=== PATIENT | female | born 1945 | race Caucasian/White ===

== ENCOUNTER → 2016-07-24 | Outpatient (CLI) | payer MEDICARE ==
--- NOTE | 2016-07-24 11:12 | XR ---
EXAMINATION TYPE: XR chest 2V DATE OF EXAM: 07/24/2016 11:05 AM COMPARISON: NONE HISTORY: Shortness of breath TECHNIQUE: Frontal and lateral views of the chest are obtained. FINDINGS: Scattered senescent parenchymal changes noted. Hyperinflation compatible with COPD. No evidence for infiltrate. No evidence for atelectasis. Heart size is stable. Mediastinal structures are stable and grossly unremarkable. No evidence for hilar prominence. Degenerative changes dorsal spine. IMPRESSION: 1. No evidence for acute pulmonary disease.
[2016-07-24 11:59] LABS: Basophils # (A) 0.1 k/uL (0-0.2); Basophils % (A) 1 %; Eosinophils # (A) 0.2 k/uL (0-0.7); Eosinophils % (A) 2 %; HCT 39.9 % (34.0-46.0); HDW 2.97; HGB 13.6 gm/dL (11.4-16.0); Luc # (Auto) 0.17; Luc % (Auto) 2; Lymphocytes # (A) 1.5 k/uL (1.0-4.8); Lymphocytes % (A) 18 %; MCH 30.4 pg (25.0-35.0); MCHC 34.2 g/dL (31.0-37.0); MCV 89.1 fL (80.0-100.0); Mean Platelet Volume 6.1; Monocytes # (A) 0.3 k/uL (0-1.0); Monocytes % (A) 4 %; Neutrophils # (A) 5.9 k/uL (1.3-7.7); Neutrophils % (A) 72 %; RBC 4.48 m/uL (3.80-5.40); RDW 13.4 % (11.5-15.5); WBC 8.1 k/uL (3.8-10.6); WBC (Perox) 7.83
[2016-07-24 13:02] LABS: Hemoglobin A1C 5.6 % (4.2-6.1)
[2016-07-24 14:50] LABS: ALT 34 U/L (9-52); AST 26 U/L (14-36); Alkaline Phosphatase 98 U/L (38-126); Anion Gap 10 mmol/L; Blood Urea Nitrogen 23 mg/dL (7-17); Calcium 9.6 mg/dL (8.4-10.2); Carbon Dioxide 28 mmol/L (22-30); Chloride 103 mmol/L (98-107); Cholesterol 246 mg/dL (<200); Glucose 119 mg/dL (74-99); HDL Cholesterol 59 mg/dL (40-60); Non-African American GFR(MDRD) 55 (>60 ml/min/1.73 sqM); Potassium 3.8 mmol/L (3.5-5.1); Sodium 141 mmol/L (137-145); Total Bilirubin 0.7 mg/dL (0.2-1.3); Total Protein 7.6 g/dL (6.3-8.2); Triglycerides 239 mg/dL (<150)
== END | disposition home or self-care (01) ==
LOC: LABWHC1 10:09
PROVIDERS: ATTEND Family Medicine
DX: R07.89 Other chest pain (principal); I10 Essential (primary) hypertension; Z00.00 Encounter for general adult medical examination without abnormal findings
CPT/HCPCS: 36415; 71020; 80053; 80061; 82533; 83036; 84439; 84443; 84484; 85025

== ENCOUNTER → 2016-08-07 | Outpatient (CLI) | payer MEDICARE ==
--- NOTE | 2016-08-07 16:05 | CT ---
EXAMINATION TYPE: CT brain wo con DATE OF EXAM: 08/07/2016 3:48 PM HISTORY: Hypertension and right sided headache and neck pain. CT DLP: 1121.00 mGycm. Automated Exposure Control for Dose Reduction was Utilized. TECHNIQUE: CT scan of the head is performed without contrast. COMPARISON: None. FINDINGS: There is no acute intracranial hemorrhage or midline shift identified. There is diffuse v entricular and sulcal prominence consistent with diffuse age-related cerebral atrophy. There is low- attenuation in the periventricular white matter consistent with chronic small vessel ischemic change. There is suspected mucous retention cyst or polyp in the right ethmoid sinus on axial image 8 otherw ise paranasal sinuses are clear. The globes are intact bilaterally. IMPRESSION: No acute intracranial hemorrhage or midline shift. There is mild diffuse age-related ce rebral atrophy and chronic small vessel ischemic change noted.
--- NOTE | 2016-08-08 15:27 | US ---
EXAMINATION TYPE: US carotid duplex BILAT DATE OF EXAM: 08/07/2016 4:00 PM COMPARISON: NONE CLINICAL HISTORY: R55 Syncope, I10 Hypertenstion R07.9 Chest Pain. EXAM MEASUREMENTS: RIGHT: Peak Systolic Velocity (PSV) cm/sec ----- Right CCA: 68.3 ----- Right ICA: 88.7 ----- Right ECA: 63.2 ICA/CCA ratio: 1.3 RIGHT: End Diastole cm/sec ----- Right CCA: 20.6 ----- Right ICA: 36.9 ----- Right ECA: 5.5 LEFT: Peak Systolic Velocity (PSV) cm/sec ----- Left CCA: 56.6 ----- Left ICA: 59.8 ----- Left ECA: 45.9 ICA/CCA ratio: 1.1 LEFT: End Diastole cm/sec ----- Left CCA: 16.8 ----- Left ICA: 59.8 ----- Left ECA: 12.9 VERTEBRALS (direction of flow): Right Vertebral: Antegrade Left Vertebral: Antegrade No significant velocity elevations Heart atheromatous plaquing of posterior shadowing is within the right carotid bulb. Intimal thickeni ng is present on the left. Some atheromatous plaquing is present on the left. IMPRESSION: 1. Atheromatous plaquing and intimal thickening without significant flow-limiting stenosis. Criteria for Assigning % of Stenosis / Diameter reduction (Estimation based on the indirect measurements of the internal carotid artery velocities (ICA PSV). 1. Normal (no stenosis)=ICA PSV < 125 cm/s: ratio < 2.0: ICA EDV<40 cm/s. 2. Less than 50% stenosis=ICA PSV < 125 cm/s: ratio < 2.0: ICA EDV<40 cm/s. 3. 50 to 69% stenosis=ICA PSV of 125 to 230 cm/s: ration 2.0 ? 4.0: ICA EDV 40-100 cm/s. 4. Greater than 70% stenosis to near occlusion= ICA PSV > 230 cm/s: ratio > 4.0: ICA EDV > 100 cm/s. 5. Near occlusion= ICA PSV velocities may be low or undetectable: variable ratio and ICA EDV. 6. Total occlusion=unable to detect flow.
== END | disposition home or self-care (01) ==
LOC: RADCTMAIN 15:25
PROVIDERS: ATTEND Family Medicine
DX: I67.82 Cerebral ischemia (principal); G31.1 Senile degeneration of brain, not elsewhere classified; I65.23 Occlusion and stenosis of bilateral carotid arteries
CPT/HCPCS: 70450; 93880

== ENCOUNTER → 2016-09-16 | Outpatient (CLI) | payer MEDICARE ==
--- NOTE | 2016-09-16 16:08 | BD ---
EXAMINATION TYPE: MG DEXA axial skeleton. DATE OF EXAM: 09/16/2016 COMPARISON: NONE CLINICAL HISTORY: 71-year-old female osteopenia Height: 64 Weight: 189.1 FRAX RISK QUESTIONS: Alcohol (3 or more units per day): no Family History (Parent hip fracture): no Glucocorticoids (More than 3mos): no (Ex: prednisone, prednisolone, methylprednisolone, dexamethasone, and hydrocortisone). History of Fracture in Adulthood: no Secondary Osteoporosis: 1. Type 1 Diabetes: no 2. Hyperthyroidism: no 3. Menopause before 45: yes 4. Malnutrition: no 5. Chronic liver disease: no Rheumatoid Arthritis: no Current Tobacco Use: RISK FACTORS HISTORY OF: Hip Fracture (Right/Left): no Spine Fracture: no History of Wrist Fracture: no Surgery to Spine/Hip(right/left)/Wrist (right/left): no Family History of Osteoporosis: no Active: sometimes Diet low in dairy products/other sources of calcium: no Postmenopausal woman: around 46 Lost more than 2 inches in height since high school: no Frequent falls: no Poor Health: no Hyperparathyroidism: no Adrenal Insufficiency: no MEDICATIONS: lorasartan, carvedilil Thyroid Medications: levothyroxine How Lon years Additional History: EXAM MEASUREMENTS: Bone mineral densitometry was performed using the [employer] System. Bone mineral density as measured about the Lumbar spine is: ----- L1-L4(G/cm2): 1.966 T Score Values are as follows: ----- L2: 4.0 ----- L3: 7.7 ----- L4: 9.4 ----- L1-L4: 6.5 Bone mineral density has: increased 8.1 % since study of: 11.29.2003 Bone mineral density about the R hip (g/cm2): 1.168 Bone mineral density about the L hip (g/cm2): 1.197 T Score values are as follows: -----R Neck: 0.9 -----L Neck: 1.1 -----R Total: 2.0 -----L Total: 2.2 Bone mineral density has: increased 5.2 % since study of: 11.29.2003 IMPRESSION: Normal (Values between +1 and -1 indicate normal bone mass). Consider repeating this study in 5 year s or sooner if there is some new clinical indication. NOTE: T-SCORE=SD OF THE YOUNG ADULT MEAN.
== END | disposition home or self-care (01) ==
LOC: RADBDWWP 13:23
PROVIDERS: ATTEND Family Medicine
DX: M85.80 Other specified disorders of bone density and structure, unspecified site (principal)
CPT/HCPCS: 77080

== ENCOUNTER → 2021-08-28 | Outpatient (CLI) | payer MEDICARE ==
--- NOTE | 2021-08-28 13:04 | XR ---
EXAMINATION TYPE: XR lumbosacral spine min 4V DATE OF EXAM: 08/28/2021 CLINICAL HISTORY: pain COMPARISON: NONE TECHNIQUE: Frontal, lateral, and oblique images of the lumbar spine are obtained. FINDINGS: There is moderate curvature convex to the left. Severe multilevel degenerative disc space n arrowing with endplate sclerosis identified from L2-3 through L5-S1. Ventral and dorsal spondylosis. Severe facet joint arthropathy. Normal alignment. Lower lumbar facet joint arthropathy. No acute frac ture or dislocation seen. IMPRESSION: Advanced degenerative changes.
== END | disposition home or self-care (01) ==
LOC: RADXRMAIN 12:20
PROVIDERS: ATTEND Family Medicine
DX: M47.817 Spondylosis without myelopathy or radiculopathy, lumbosacral region (principal)
CPT/HCPCS: 72110

== ENCOUNTER → 2021-09-28 | Outpatient (CLI) | payer MEDICARE ==
--- NOTE | 2021-09-29 03:18 | MR ---
EXAMINATION TYPE: MR lumbar spine wo con DATE OF EXAM: 09/28/2021 COMPARISON: None HISTORY: Low back pain into left lower extremity Multiplanar multi echo imaging of the lumbar spine with no contrast. Slight levoscoliosis. There is degenerative disc space narrowing throughout the lumbar spine. No comp ression fracture. There is endplate spur formation and facet arthropathy with some lateral recess boris nosis at L2-3 and L3-4. No lumbar paraspinal mass. No focal bone destruction. There is a mild relativ e spinal stenosis at L3-4. Sacroiliac joints appear intact. IMPRESSION: Moderate multilevel spondylotic changes. Mild spinal stenosis at L3-4. No compression fracture. Mild neural foraminal narrowing at multiple levels due to disc space narrowing and facet arthropathy.
== END | disposition home or self-care (01) ==
LOC: RADMRIMAIN 15:04
PROVIDERS: ATTEND Family Medicine
DX: M51.36 Other intervertebral disc degeneration, lumbar region (principal); M99.53 Intervertebral disc stenosis of neural canal of lumbar region; M47.816 Spondylosis without myelopathy or radiculopathy, lumbar region
CPT/HCPCS: 72148

== ENCOUNTER → 2023-08-25 | Outpatient (CLI) | payer MEDICARE ==
--- NOTE | 2023-08-25 20:33 | BD ---
EXAMINATION TYPE: Axial Bone Density DATE OF EXAM: 08/25/2023 CLINICAL HISTORY: 78 years old Female. ICD-10 CODE: Z78.0 ASYMPTOMATIC MENOPAUSAL STATE Height: 64 Weight: 176.4 FRAX RISK QUESTIONS: Alcohol (3 or more units per day): no Family History (Parent hip fracture): no Glucocorticoids (More than 3mos): no (Ex: prednisone, prednisolone, methylprednisolone, dexamethasone, and hydrocortisone). History of Fracture in Adulthood: no Secondary Osteoporosis: 1. Type 1 Diabetes: no 2. Hyperthyroidism: no 3. Menopause before 45: no 4. Malnutrition: no 5. Chronic liver disease: no Rheumatoid Arthritis: no Current Tobacco Use: no RISK FACTORS HISTORY OF: Surgery to Spine/Hip(right/left)/Wrist (right/left): no MEDICATIONS: Thyroid Medications: levothyroxine How Lon years EXAM MEASUREMENTS: Bone mineral densitometry was performed using the [employer] System. Bone mineral density as measured about the Lumbar spine is: ----- L1-L4(G/cm2): 1.940 T Score Values are as follows: ----- L1: 4.3 ----- L2: 4.5 ----- L3: 7.8 ----- L4: 8.9 ----- L1-L4: 6.3 Z Score Values are as follows: ----- L1: 5.6 ----- L2: 5.8 ----- L3: 9.1 ----- L4: 10.2 ----- L1-L4: 7.6 Bone mineral density has: increased 0.7 % since study of: 09.16.2016 Bone mineral density about the R hip (g/cm2): 1.262 Bone mineral density about the L hip (g/cm2): 1.302 T Score values are as follows: -----R Neck: 1.2 -----L Neck: 1.3 -----R Total: 2.0 -----L Total: 2.3 Z Score values are as follows: -----R Neck: 2.9 -----L Neck: 3.0 -----R Total: 3.5 -----L Total: 3.8 Bone mineral density has: decreased -1.3 % since study of: 09.16.2016 FRAX%s: The graph provided illustrates a 5.8% chance for a major osteoporotic fx and a 0.3% chance fo r the hips probability for fx in 10 years time. IMPRESSION: Normal (Values between +1 and -1 indicate normal bone mass). Consider repeating this study in 5 year s or sooner if there is some new clinical indication. NOTE: T-SCORE=SD OF THE YOUNG ADULT MEAN.
== END | disposition home or self-care (01) ==
LOC: RADBDWWP 09:13
PROVIDERS: ATTEND Family Medicine
DX: Z78.0 Asymptomatic menopausal state (principal)
CPT/HCPCS: 77080

== ENCOUNTER → 2023-11-02 | Outpatient (CLI) | payer MEDICARE ==
--- NOTE | 2023-12-01 09:25 | MR ---
Site ID synapse default Patient Kathi Poole E ID [id number] 1945 Age/Gender: 78Y, F Order # N/A Procedure MR lumbar spine wo con Date 11/02/2023 1:57:57 PM EXAMINATION TYPE: MR lumbar spine wo con DATE OF EXAM: 11/13/2023 COMPARISON: MRI lumbar spine 09/28/2021 HISTORY: Low back pain into left side. TECHNIQUE: Multiplanar, multisequence images of the lumbar spine were acquired without IV contrast. FINDINGS: The lumbar vertebral bodies do have preserved heights. Levoscoliotic curvature of the lumb ar spine with apex at L3. Mild retrolisthesis of T12 and L1. Stable T1/T2 hypointense lesion within t he L1 vertebral body probably representing a bone island. Multilevel small Schmorl's nodes. Multileve l disc desiccation is present. Diffuse heterogenous bone marrow signal. Multilevel anterior osteophyt osis. Type I Modic changes involving the superior endplate of the L3 vertebral body and inferior end plate of the L2 vertebral body. The conus medullaris and the distal spinal cord do appear unremarkabl e with regards to their signal intensity and morphology. T12-L1: Mild retrolisthesis. No significant central canal stenosis. Bilateral facet arthropathy with mild bilateral neural foraminal stenosis. L1-L2: No disc herniation or significant central canal stenosis. Bilateral facet arthropathy with mi ld right neural foraminal stenosis. The left neural foramen is patent. L2-L3: Broad-based disc bulge with ligamentum flavum buckling and bilateral facet arthropathy contri bute to mild central canal stenosis. Moderate right neural foraminal stenosis. The left neural forame n is patent. L3-L4: Left paracentral caudal extrusion coursing 7 mm along the posterior cortex of the L4 vertebra l body. This results in moderate central canal stenosis. Bilateral facet arthropathy with ligamentum flavum buckling. Severe right and moderate left neural foraminal stenosis. L4-L5: Broad-based disc bulge without significant effacement of the anterior thecal sac. Bilateral fa cet arthropathy with left greater than right. No significant central canal stenosis. Mild right and m oderate left neural foraminal stenosis. L5-S1: The intervertebral disc appears round on its contour posteriorly without significant mass eff ect upon the thecal sac. Facet joints are enlarged. The left neural foraminal stenosis. The right ne ural foramen is patent Other significant findings: Partial visualization of sigmoid diverticulosis. IMPRESSION: 1. Moderate multilevel degenerative disc disease and facet arthropathy redemonstrated with developme nt of a left paracentral caudal disc extrusion at L3-L4 resulting in moderate central canal stenosis. Varying degrees of neural foraminal stenosis as described above. 2. Mild retrolisthesis of T12 on L1 with levoscoliotic curvature of the lumbar spine.
== END | disposition home or self-care (01) ==
LOC: RADMRIMAIN 14:37
PROVIDERS: ATTEND Orthopaedic Surgery
DX: M47.816 Spondylosis without myelopathy or radiculopathy, lumbar region (principal); M51.36 Other intervertebral disc degeneration, lumbar region; M51.16 Intervertebral disc disorders with radiculopathy, lumbar region; M41.9 Scoliosis, unspecified; M43.16 Spondylolisthesis, lumbar region; M99.73 Connective tissue and disc stenosis of intervertebral foramina of lumbar region
CPT/HCPCS: 72148

== ENCOUNTER → 2023-11-20 | Outpatient (CLI) | payer MEDICARE ==
[~2023-11-20] MED LIST: DOBUTamine DRIP for NUC MED 500 MG in DEXTROSE/WATER 1 250ML.BAG IV PRN; DOBUTamine DRIP for NUC MED 500 MG/250 ML BAG IV ONE
--- NOTE | 2023-11-20 12:59 | CA ---
Dobutamine Stress Echocardiogram Report Kathi Poole Age: 78 Gender: F : 1945 Exam Date: 11/20/2023 08:40 Exam Location: [facility] Ordering Physician: Bernard Roberts DO Referring Physician: Bernard Roberts DO Pipe [employer]: RO Technologist: Ht (in): 64 Wt (lb): 182 Procedure CPT: Indication: R07.9 CHEST PAIN, UNSPECIFIED ICD-9 Codes: Rhythm: Patient History: Shortness of breath, palpitations, hypertension and family history of heart disease. Cardiac Medications: Medications in past 24 hours: Contrast: Definity Total Dose (mL): 2 Stress Results Protocol: Dobutamine Peak Dose (???g/kg/min): 40 Duration (min:sec): Atropine:(mg) Target HR: 122 Double Product: 81008 Resting HR: 64 Resting BP: 152 / 85 Peak HR: 143 Peak BP: 198 / 64 Max Predicted HR: 143 100 % Max Predicted HR Stress Summary: BP Response: Reason for Termination: INFUSION COMPLETE,Target HR Cardiac Symptoms: NO SYMPTOMS ECG Analysis Resting EKG: Stress EKG: Arrhythmia: Echo Analysis Base Echo Analysis: Low Echo Anaylsis: Peak Echo Analysis: Recovery Echo: MEASUREMENTS (Male/Female) Normal Values CONCLUSIONS Patient underwent dobutamine stress echo with infusion of dobutamine into Stage 4 for a total of 13 minutes and 20 seconds. Patient's maximum heart rate was 143 which represented 100% age-predicted maximum heart rate. Stress EKG portion: At baseline patient's EKG showed normal sinus rhythm, normal axis, no significant ST or T wave abnormalities. At peak dobutamine infusion, EKG showed rare PVCs and no significant ST or T wave abnormalities. Stress echo portion: 2-D echocardiogram was performed in the parasternal long, personal short, apical 2 and apical four-chamber views at rest, low-dose, peak infusion and in recovery. At baseline, echocardiogram showed left ventricular ejection fraction 55% without wall motion abnormalities. With peak infusion, echocardiogram shows improvement in left ventricular ejection fraction, increase contractility, decrease in left ventricular end systolic dimension without wall motion abnormalities consistent with a normal response to dobutamine. Conclusions: 1. Normal stress EKG and echo response to dobutamine infusion without any evidence of inducible ischemia. Dr. Petey Feliz DO (Electronically Signed) Final Date: 20 November 2023 12:58
--- NOTE | 2023-11-20 13:46 | CA ---
Transthoracic Echo Report Name: Kathi Poole Age: 78 Gender: F : 1945 Exam Date: 11/20/2023 09:05 Exam Location: [facility] Ht (in): 64 Wt (lb): 182 Ordering Physician: Bernard Roberts DO Attending/Referring Phys: Bernard Roberts DO Forensic Anthropologist Erin Mustafa RDCS Procedure CPT: Indications: R07.9 CHEST PAIN Cardiac Hx: Technical Quality: Fair Contrast 1: Total Dose (mL): Contrast 2: Total Dose (mL): MEASUREMENTS (Male / Female) Normal Values 2D ECHO LV Diastolic Diameter PLAX 3.3 cm 4.2 - 5.9 / 3.9 - 5.3 cm LV Systolic Diameter PLAX 2.4 cm IVS Diastolic Thickness 1.0 cm 0.6 - 1.0 / 0.6 - 0.9 cm LVPW Diastolic Thickness 1.1 cm 0.6 - 1.0 / 0.6 - 0.9 cm LV Relative Wall Thickness 0.6 LV Diastolic Volume MOD BP 78.5 cm??? 67 - 155 / 56 - 104 cm??? LV Systolic Volume MOD BP 30.1 cm??? 22 - 58 / 19 - 49 cm??? LV Ejection Fraction MOD BP 61.7 % >= 55 % LV Cardiac Index MOD BP 1855.1 cm???/min???m??? LV Diastolic Volume MOD 4C 68.6 cm??? LV Systolic Volume MOD 4C 26.5 cm??? LV Ejection Fraction MOD 4C 61.3 % LV Cardiac Index MOD 4C 1610.6 cm???/min???m??? LV Diastolic Length 4C 7.2 cm LV Systolic Length 4C 5.6 cm LV Diastolic Volume MOD 2C 86.1 cm??? LV Systolic Volume MOD 2C 32.1 cm??? LV Ejection Fraction MOD 2C 62.7 % LV Cardiac Index MOD 2C 2066.1 cm???/min???m??? LV Diastolic Length 2C 7.6 cm LV Systolic Length 2C 6.0 cm DOPPLER AV Peak Velocity 114.2 cm/s AV Peak Gradient 5.2 mmHg AV Mean Velocity 78.7 cm/s AV Mean Gradient 2.8 mmHg AV Velocity Time Integral 25.1 cm Mitral E Point Velocity 47.0 cm/s Mitral A Point Velocity 69.3 cm/s Mitral E to A Ratio 0.7 MV Deceleration Time 178.0 ms MV E' Velocity 6.2 cm/s Mitral E to MV E' Ratio 7.6 TR Peak Velocity 230.8 cm/s TR Peak Gradient 21.3 mmHg Right Atrial Pressure 5.0 mmHg Pulmonary Artery Systolic Pressu 26.3 mmHg Right Ventricular Systolic Press 26.3 mmHg PV Peak Velocity 87.8 cm/s PV Peak Gradient 3.1 mmHg FINDINGS Left Ventricle Left ventricular ejection fraction is estimated at 55-60 %. Mildly increased posterior wall thickness. Left ventricular cavity size normal. No obvious regional wall motion abnormalities. Right Ventricle Normal right ventricular size and function. Right ventricular systolic pressure within normal limits. Right Atrium Normal right atrial size. Left Atrium Normal left atrial size. Mitral Valve Structurally normal mitral valve. No evidence for mitral valve prolapse. No mitral stenosis. Trace mitral regurgitation. Aortic Valve Trileaflet aortic valve. No aortic valve stenosis or regurgitation. Tricuspid Valve Structurally normal tricuspid valve. No tricuspid stenosis. Mild tricuspid regurgitation. Pulmonic Valve Pulmonic valve not well visualized. No pulmonic regurgitation. No pulmonic stenosis. Pericardium No pericardial effusion. Aorta Aortic annulus normal. CONCLUSIONS Left ventricular ejection fraction 55-60% Mildly increased left ventricular wall thickness RVSP 26 Trace mitral regurgitation Mild tricuspid regurgitation No pericardial effusion Previewed by: Dr. Petey Feliz DO (Electronically Signed) Final Date: 20 November 2023 13:46
== END | disposition home or self-care (01) ==
LOC: RADNMMAIN 07:48
PROVIDERS: ATTEND Family Medicine
DX: I49.3 Ventricular premature depolarization (principal); I08.1 Rheumatic disorders of both mitral and tricuspid valves
CPT/HCPCS: 93306; 93351; J1250; Q9957